=== PATIENT | female | born 1995 | race Caucasian/White ===

== ENCOUNTER 2021-04-29 23:41 | Inpatient (IN) | payer BC, SELFPAY ==
[2021-04-30] VITALS (68 sets, daily range): BP systolic 75–152; BP diastolic 46–127; PULSE 66–96; RESP 16–18; TEMP 36.7–37.1; O2SAT 98–100; BMI 38.1
--- NOTE | 2021-04-30 00:35 | LDADM ---
This patient, Noni Soto, was admitted to Labor/Delivery/Recovery 106 on 04/29/21 at 23:41. Plans for labor, pain management and were discussed with patient. Patient/family oriented to hospital policies and general routines including ID bracelet, bed and alarms, visiting hours, pain management, procedures, bathroom and other care routines, personal items, smoking policy, room service/diet and guest tray routines, infant security routines, and visiting hours. Patient/Family are encouraged to report perceived risks to care and to ask questions if they do not understand what they are told or what they should do. See OBIX for further documentation.
[2021-04-30 00:43] LABS: Basophils Percent Auto 0.2 % (0.2-1.2); Eosinophils Absolute Auto 0.1 K/mm3 (0-0.3); Eosinophils Percent Auto 0.6 % (0-4.4); Hematocrit 35.2 % (37.0-47.0); Hemoglobin 11.5 g/dL (12.0-15.0); Immature Granulocyte Absolute 0.03 K/mm3 (0.00-0.031); Immature Granulocyte Percent A 0.3 % (0-0.5); Lymphocytes Absolute Auto 2.27 K/mm3 (0.9-3.2); Lymphocytes Percent Auto 23.7 % (18.3-44.2); Mean Corpuscular HGB Conc 32.7 g/dl (32-36); Mean Corpuscular Hemoglobin 28.5 pg (26-34); Mean Corpuscular Volume 87.3 fl (80-100); Mean Platelet Volume 11.2 fl (7.4-10.4); Monocytes Absolute Auto 0.6 K/mm3 (0.1-0.6); Monocytes Percent Auto 5.8 % (2.6-8.5); Neutrophils Absolute Auto 6.6 K/mm3 (1.3-6.7); Neutrophils Percent Auto 69.4 % (45.5-73.1); Platelet Count Result 214 k/mm3 (150-375); Red Blood Count 4.03 M/mm3 (4.2-5.4); Red Cell Distribution Width 14.8 % (11.5-14.5); White Blood Count 9.6 K/mm3 (4.5-10.0)
[2021-04-30] MEDS: OXYTOCIN 30 UNITS/NS 500 ML 30 UNITS/500 ML BAG IV CONT (01:30)
[2021-04-30] MEDS: LACTATED RINGERS 1,000 ML 125 ML IV CONT (01:30)
[2021-04-30] MEDS: CALCIUM CARBONATE (TUMS) 500 MG (200 MG ELEMENTAL) 400 MG PO (02:24)
[2021-04-30] MEDS: fentaNYL CITRATE INJ (*CRX) 100 MCG/2 ML VIAL IV PUSH ×2 (03:42→04:49)
--- NOTE | 2021-04-30 05:40 | P.PNAN_ITS ---
Anes - Eval Pre Procedure Procedure: labor epidural Date/Time: 04/30/21 05:40 Surgeon: tanvi Preop Diagnosis: pain during labor Pre Op Diagnosis: Leaking Patient Data Age: 26 Gender: F Height: 1.6 m Weight: 97.6 kg Last Vital Signs Temp 36.9 C 04/30/21 03:31 Pulse 94 04/30/21 05:01 BP 137/76 04/30/21 05:01 Allergies Allergy/AdvReac Type Severity Reaction Status Date / Time No Known Allergies Allergy Verified 04/09/21 15:23 Home Medications Medication Instructions Recorded Confirmed Type No Home Medications 04/09/21 04/09/21 History Laboratory Tests 04/30/21 04/30/21 04/30/21 00:29 00:29 00:29 WBC 9.6 K/mm3 K/mm3 (4.5-10.0) RBC 4.03 M/mm3 L M/mm3 (4.2-5.4) Hgb 11.5 g/dL L g/dL (12.0-15.0) Hct 35.2 % L % (37.0-47.0) MCV 87.3 fl fl (80-100) MCH 28.5 pg pg (26-34) MCHC 32.7 g/dl g/dl (32-36) RDW 14.8 % H % (11.5-14.5) Plt Count 214 k/mm3 k/mm3 (150-375) MPV 11.2 fl H fl (7.4-10.4) Immature Gran % (Auto) 0.3 % % (0-0.5) Neut % (Auto) 69.4 % % (45.5-73.1) Lymph % (Auto) 23.7 % % (18.3-44.2) [place] % (Auto) 5.8 % % (2.6-8.5) Eos % (Auto) 0.6 % % (0-4.4) Baso % (Auto) 0.2 % % (0.2-1.2) Lymph # (Auto) 2.27 K/mm3 K/mm3 (0.9-3.2) [place] # (Auto) 0.6 K/mm3 K/mm3 (0.1-0.6) Eos # (Auto) 0.1 K/mm3 K/mm3 (0-0.3) Baso # (Auto) 0.0 K/mm3 K/mm3 (0.0-0.1) Abs Immat Gran (auto) 0.03 K/mm3 K/mm3 (0.00-0.031) Absolute Neuts (auto) 6.6 K/mm3 K/mm3 (1.3-6.7) Absolute Nucleated RBC 0.0 K/mm3 K/mm3 (0.0-0.012) Nucleated RBC % 0.0 % % (0.0-0.2) RPR Pending Blood Type O Positive Antibody Screen Negative Patient hx anesthesia problems: none Family hx anesthesia problems: none Results Review: All pre-operative results and documents have been reviewed as part of the pre-operative evaluation. [facility] Family History Family History (Updated 04/09/21 @ 15:24 by Eloy Martinez RN) Other Adopted Social History Social History Smoking status: Never smoker Second hand tobacco smoke exposure: No Substance use: never Spiritual care concerns: No Exam Day of Procedure 04/30/21 05:40
[2021-04-30 07:15] LABS: Rapid Plasma Reagin Non-Reactive (NonReactive)
[2021-04-30] MEDS: ONDANSETRON INJ 4 MG/2 ML VIAL IV PUSH (09:27)
--- NOTE | 2021-04-30 09:30 | PM.IMHP ---
H&P: HPI History of Present Illness Date/Time: 04/30/21 09:30 Chief Complaint: intrauterine at term spontaneous rupture of membranes Narrative: 26 yo at 39w5d who presents after SROM around midnight. She endorses good movement. She denies any vaginal bleeding. Her has been uncomplicated thus far. Review of Systems Cardiovascular: Cardiovascular: Denies chest pain, Denies leg edema, Denies palpitations, Denies dyspnea and Denies dyspnea on exertion Respiratory: Respiratory: Denies cough, Denies dyspnea and Denies dyspnea on exertion Gastrointestinal: Gastrointestinal: Denies abdominal pain, Denies constipation, Denies diarrhea, Denies nausea and Denies vomiting Genitourinary: Genitourinary: Denies hematuria, Denies urinary frequency, Denies dysuria, Denies pelvic pain, Denies urinary incontinence and Denies vaginal discharge Neurologic: Reports system reviewed and no additional complaints, except as documented Psychiatric: Psychiatric: Reports no additional psychiatric complaints Endocrine: Endocrine: Denies palpitations COUNT INCLUDES THE [facility] Family History Family History (Updated 04/09/21 @ 15:24 by Eloy Martinez RN) Other Adopted Social History Social History Smoking status: Never smoker Second hand tobacco smoke exposure: No Substance use: never Spiritual care concerns: No Meds Home Medications and Allergies Home Medications Medication Instructions Recorded Confirmed Type No Home Medications 04/09/21 04/09/21 History Allergies Allergy/AdvReac Type Severity Reaction Status Date / Time No Known Allergies Allergy Verified 04/09/21 15:23 Vital Signs Vital Signs - 24 hr 04/30/21 00:16 04/30/21 00:31 04/30/21 00:47 Temperature Pulse Rate 73 78 78 Blood Pressure 138/94 H 136/91 H 101/46 L Pulse Oximetry 04/30/21 01:31 04/30/21 01:34 04/30/21 02:24 Temperature 37.0 C Pulse Rate 81 73 Blood Pressure 75/56 L 140/87 Pulse Oximetry 04/30/21 02:31 04/30/21 03:01 04/30/21 03:31 Temperature 36.9 C Pulse Rate 71 68 72 Blood Pressure 143/85 H 150/127 H 141/89 H Pulse Oximetry 04/30/21 04:01 04/30/21 05:01 04/30/21 05:30 Temperature 37.1 C Pulse Rate 85 94 Blood Pressure 134/78 137/76 Pulse Oximetry 04/30/21 05:44 04/30/21 05:46 04/30/21 05:49 Temperature Pulse Rate 80 85 Blood Pressure 150/89 H 141/91 H Pulse Oximetry 100 100 04/30/21 05:51 04/30/21 05:52 04/30/21 05:53 Temperature Pulse Rate 90 77 Blood Pressure 137/81 152/83 H Pulse Oximetry 100 04/30/21 05:56 04/30/21 05:57 04/30/21 05:59 Temperature Pulse Rate 83 86 Blood Pressure 151/82 H 140/88 Pulse Oximetry 100 04/30/21 06:01 04/30/21 06:02 04/30/21 06:03 Temperature Pulse Rate 81 75 Blood Pressure 143/86 H 146/79 H Pulse Oximetry 100 04/30/21 06:06 04/30/21 06:07 04/30/21 06:09 Temperature Pulse Rate 73 75 Blood Pressure 140/77 130/98 H Pulse Oximetry 100 04/30/21 06:11 04/30/21 06:12 04/30/21 06:15 Temperature Pulse Rate 81 76 Blood Pressure 142/82 H 121/68 Pulse Oximetry 100 04/30/21 06:16 04/30/21 06:17 04/30/21 06:18 Temperature Pulse Rate 86 73 Blood Pressure 118/71 128/67 Pulse Oximetry 100 04/30/21 06:21 04/30/21 06:22 04/30/21 06:23 Temperature Pulse Rate 69 69 Blood Pressure 140/73 132/77 Pulse Oximetry 100 04/30/21 06:26 04/30/21 06:27 04/30/21 06:28 Temperature Pulse Rate 71 74 Blood Pressure 97/61 L 130/74 Pulse Oximetry 100 04/30/21 06:31 04/30/21 06:32 04/30/21 06:33 Temperature Pulse Rate 66 66 Blood Pressure 136/80 136/78 Pulse Oximetry 100 04/30/21 06:36 04/30/21 06:37 04/30/21 06:42 Temperature Pulse Rate 80 Blood Pressure 143/70 H Pulse Oximetry 100 100 04/30/21 06:47 04/30/21 07:01 04/30/21 07:07 Temperature 36.8 C Pulse Rate 77 Blood Pressure 117/71 Pulse Oximetry 100
--- NOTE | 2021-04-30 10:34 | PM.OBPRVD ---
OB - Delivery Note Procedure Procedure: Patient pushed for a spontaneous vaginal delivery. The fetus was delivered atraumatically and placed on the maternal abdomen. The cord was clamped and cut after 1 minute of life. The cord was double clamped and cut and a segment of cord was collected for cord gases. Cord blood was collected for blood type and Coomb's testing. The placenta delivered spontaneously and was noted to be intact. The perineum was inspected and there was a 2nd degree perineal and right labial laceration. The laceration was repaired with 3-0 vicryl in the usual fashion. The uterus was firm and good hemostasis was noted. The patient and fetus were stable in the delivery room. Induction method: None Delivery augmentation: Pitocin Delivery monitor: External FHT Route of delivery: Episiotomy description: None Laceration Description: Perineal - 2nd Degree and Labial (right) Delivery repair: vicryl Specimen: No Quantitative Blood Loss (ml): 150 Anesthesia type: Epidural Disposition: floor () Complications: No immediate complications [place] Baby Date of : 04/30/21 Time of : 10:18 Weeks of gestation at delivery: 39 gender: Female Weight (pounds): 6 Weight (ounces): 4 presentation: vertex position: Right Occiput Anterior Placenta delivery description: Spontaneous Cord Vessel Description: 3 Vessels and Nuchal Cord score one minute: 8 score five minutes: 9
[2021-04-30] MEDS: OXYTOCIN 30 UNITS/NS 500 ML 30 UNITS/500 ML BAG 125 UNITS IV CONT (10:51)
[2021-04-30] MEDS: WITCH HAZEL 40 PADS 1 PAD TOPICAL (12:54)
[2021-04-30] MEDS: BENZOCAINE 20% AER SPR (*SP) 56 GM CAN 1 SPRAY TOPICAL (12:54)
--- NOTE | 2021-04-30 13:10 | PC.NURSE ---
Patient transferred to post room #285 per wheelchair from labor and delivery. Support person present. Oriented to unit, room, information board, rooming in, admission packet and security measures. Patient verbalizes understanding.
--- NOTE | 2021-04-30 15:21 | PC.NURSE ---
1347 -Mother and father are sleeping. Introduction were made and mother agreed that is her desire. is in the bassinet with early feeding cues. RN unwrapped/undressed for skin to skin contact with mother. Mother makes a decision to attempt in the side-lying position. After a few minutes latched effectively to the left breast with good rocking motion and suck/swallow ratio appropriate. Mother denies discomfort and voices understanding to call for assistance when needed. Reported to primary RN.
[2021-05-01] MEDS: IBUPROFEN 600 MG TABLET PO ×2 (01:50→08:55)
[2021-05-01 04:25] VITALS: BP 117/75; PULSE 76; RESP 16; TEMP 36.8; O2SAT 99
[2021-05-01 04:58] LABS: Hematocrit 31.9 % (37.0-47.0); Hemoglobin 10.5 g/dL (12.0-15.0)
[2021-05-01 07:40] VITALS: BP 135/92; PULSE 63; RESP 16; TEMP 36.4; O2SAT 100
[2021-05-01] MEDS: MULTIVIT/MIN/PREN/FOL AC/IRON TABLET 1 TAB PO (07:53)
--- NOTE | 2021-05-01 08:31 | PM.OBPNVD ---
OB - PN: Subj Subjective Date/time seen: 05/01/21 08:31 Patient comments: no complaints, pain well controlled and tolerating diet [place] feeding status: exclusively breast feeding Narrative: patient doing well this AM. No complaints. Pain is well controlled. She reports minimal bleeding. She is ambulating and voiding without difficulty. She is tolerating PO. She denies N/V, fever, chills. OB - PN: Obj Data Labs CBC & Chem 7: 05/01/21 04:30 Labs: Laboratory Results - last 24 hr 05/01/21 04:30 Hgb 10.5 L Hct 31.9 L OB - PN A/P Plan day: 1 Plan: routine care Comments: patient doing well H/H stable continue routine care Time Spent With Patient Time: Total time spent is greater than 50% in coordination of care (as documented) at patient's floor/unit and/or counseling patient: Time with patient: less than 15 minutes Review of Systems Review of Systems: All systems reviewed & are unremarkable except as noted in HPI and below Exam Const: General: comfortable and no acute distress Resp: Effort & Inspection: normal respiratory effort Cardio: Rate: regular rate GI: GI Palp: Yes Soft to palpation and No Tenderness to palpation present (GI) Auscultation: normal bowel sounds Other: fundus firm and below umbilicus. Psych: Affect: normal affect
--- NOTE | 2021-05-01 08:32 | P.DS_ITS ---
DS: Admitting Diagnosis Discharge Date 05/01/21 Admitting Diagnosis intrauterine at term OB - DS: Summary OB Procedures : None OB Procedures Intrapartum: Spontaneous Vag Delivery OB Procedures: : None Status at Discharge Functional status at discharge: independent ambulation Overall status at discharge: patient is back to baseline Time Spent with Patient Time attestation: Total time spent providing and/or coordinating discharge services: Time spent: Less than 30 minutes Exam Const: General: comfortable and no acute distress Resp: Effort & Inspection: normal respiratory effort Auscultation: clear to auscultation bilaterally Cardio: Rate: regular rate GI: GI Palp: Yes Soft to palpation Auscultation: normal bowel sounds Other: Fundus firm below umbilicus Psych: Appearance: grossly normal Mental Status: mental status grossly normal Affect: normal affect DS: Data Data Completed and Pending Pending studies at discharge: Pending at discharge 04/30/21 10:22 Surgical [PTH] Routine Labs on day of discharge: Labs from last 24 hours 05/01/21 04:30 Hgb 10.5 L Hct 31.9 L Discharge Plan Discharge Discharging Clinician: Mitchell Boateng Patient Disposition: Home, Self-Care Activity: as tolerated and pelvic rest Diet: regular Patient Instructions: Antibiotic Form, Vaginal Delivery (DC) Stand Alone Forms: General Discharge Information Follow-up/Referrals: Emmanuel Myles MD [Physician] - Discharge Medications: New ibuprofen 600 mg Tablet 600 mg PO Q6H PRN (Reason: Cramping) Qty: 30 RF: 0 acetaminophen [Mapap (acetaminophen)] 325 mg Tablet 650 mg PO Q6H PRN (Reason: Mild Pain (1-3) Or Headache) Qty: 30 RF: 0 No Action No Home Medications RF: 0 Date of admission: 04/29/21 23:41 Primary Care Provider: PHYSICIAN,[employer] Admitting Provider: Emmanuel Myles Attending physician on admission: Emmanuel Myles Condition: Stable
--- NOTE | 2021-05-01 09:02 | PC.NURSE ---
7918 - Consulted with patient on how has gone so far. Mother has infant latched effectively to the left breast in cross cradle position without and discomfort. Mother voiced understanding to call out for RN assistance if she is unable to latch for feeding, has discomfort with nursing and to respond to feeding cues for feeding to aim for 8-12 times in 24 hours. are noted before. Reported to primary RN.
--- NOTE | 2021-05-01 09:15 | P.PNAN_ITS ---
Anes-Prog Note L&D Date/Time: 05/01/21 09:15 Comfortable throughout: labor Neuraxial method: epidural Epidural/Spinal procedure site: tender Neuro status: Neuro function grossly intact. Cardiovascular status: normal Respiratory status: normal Airway patency: baseline Mental status: baseline Post-Op hydration status: normal Vital Signs: Last Vital Signs Temp 97.6 F 05/01/21 07:40 Pulse 63 05/01/21 07:40 Resp 16 05/01/21 07:40 BP 135/92 H 05/01/21 07:40 Pulse Ox 100 05/01/21 07:40 Pain score (VAS): 0 Post-procedural complaints: none Patient feedback: Patient satisfied with anesthetic care. Pt verbalized good coverage with labor epidural however, states had a lot of pain with deli very.spoke with delivery nurse Caitlin. RN states boluses were given via the pump but she did not notify anesthesiology d/t pt making quick change.
--- NOTE | 2021-05-01 16:00 | PC.NURSE ---
Patient instructed to view the discharge video Mother & Baby Care, The First Two Weeks . Patient was given the opportunity and encouraged to ask questions. Patient verbalized understanding of information shared and has been given the mother/baby guide for home reference.
[2021-05-02 11:37] VITALS: BP 129/70; PULSE 78; RESP 20; TEMP 37.1; O2SAT 100
== END 2021-05-01 17:17 | disposition home or self-care (01) | DRG 807 ==
LOC: ANHOB2 05-01 14:45 → ANHLDR 05-02 08:13 → ANHOB2 05-02 08:13
PROVIDERS: Admitting Provider Obstetrics & Gynecology; Visit Provider Student in an Organized Health Care Education/Training Program
DX: O77.0 Labor and delivery complicated by meconium in amniotic fluid (principal); Z37.0 Single live birth; Z3A.39 39 weeks gestation of pregnancy; O69.81X0 Labor and delivery complicated by cord around neck, without compression, not applicable or unspecified; O36.8330 Maternal care for abnormalities of the fetal heart rate or rhythm, third trimester, not applicable or unspecified; O70.1 Second degree perineal laceration during delivery
CPT/HCPCS: 36415; 84112; 85014; 85018; 85025; 86592; 86850; 86900; 86901; 88307; A9270; J2405; J2590; J2795; J3010; J7120

== ENCOUNTER 2022-10-30 23:29 | Inpatient (IN) | payer OTHER, SELFPAY ==
[2022-10-31] VITALS (154 sets, daily range): BP systolic 89–146; BP diastolic 37–91; PULSE 52–163; RESP 18; TEMP 35.8–37.1; O2SAT 85–100; BMI 37.9
[2022-10-31 03:47] LABS: Basophils Percent Auto 0.2 % (0.2-1.2); Eosinophils Absolute Auto 0.1 K/mm3 (0-0.3); Eosinophils Percent Auto 0.9 % (0-4.4); Hematocrit 37.7 % (37.0-47.0); Hemoglobin 12.3 g/dL (12.0-15.0); Immature Granulocyte Absolute 0.06 K/mm3 (0.00-0.031); Immature Granulocyte Percent A 0.6 % (0-0.5); Lymphocytes Absolute Auto 2.31 K/mm3 (0.9-3.2); Lymphocytes Percent Auto 22.8 % (18.3-44.2); Mean Corpuscular HGB Conc 32.6 g/dl (32-36); Mean Corpuscular Hemoglobin 29.2 pg (26-34); Mean Corpuscular Volume 89.5 fl (80-100); Mean Platelet Volume 10.7 fl (7.4-10.4); Monocytes Absolute Auto 0.6 K/mm3 (0.1-0.6); Monocytes Percent Auto 5.9 % (2.6-8.5); Neutrophils Absolute Auto 7.1 K/mm3 (1.3-6.7); Neutrophils Percent Auto 69.6 % (45.5-73.1); Platelet Count Result 219 k/mm3 (150-375); Red Blood Count 4.21 M/mm3 (4.2-5.4); Red Cell Distribution Width 14.3 % (11.5-14.5); White Blood Count 10.2 K/mm3 (4.5-10.0)
[2022-10-31] MEDS: LACTATED RINGERS 1,000 ML 125 ML IV CONT ×3 (03:53→12:58)
[2022-10-31] MEDS: OXYTOCIN 30 UNITS/NS 500 ML 30 UNITS/500 ML BAG IV CONT (03:57)
[2022-10-31] MEDS: ONDANSETRON INJ 4 MG/2 ML VIAL IV PUSH ×2 (06:18→16:04)
--- NOTE | 2022-10-31 08:38 | WPDOBADMIT ---
Obstetrics - Admit Note Admission Note: record reviewed. Additions to the history and/or subsequent changes in the physical findings follow. 27 y/o at 40 1/7 weeks here with leakage of fluid. RomPlus was negative, but some FHR abnormalities prompted admission for labor induction. GBS neg. AVSS NST reactive TOCO: irregular contractions ABD soft, nontender, gravid, vertex EXT nontender Cervix 2-3/50/-2. AROM with thin meconium. IUPC placed. Vertex. A: IUP at term. P: Offered labor induction, as above. Thin mec. Oxytocin. Anticipate .
[2022-10-31] MEDS: fentaNYL CITRATE INJ (*CRX) 100 MCG/2 ML VIAL 50 MCG IV PUSH (09:00)
[2022-10-31 09:02] LABS: Rapid Plasma Reagin Non-Reactive (NonReactive)
[2022-10-31] MEDS: SODIUM CHLORIDE 0.9% IV 300 ML 600 ML I-UTERINE (11:15)
--- NOTE | 2022-10-31 11:28 | WPDANESEPPF ---
Anes - Initial Pre Proc Eval Date/Time: 10/31/22 11:28 Surgeon: Emmanuel Myles MD Pre Op Diagnosis: Leaking Fluid Patient Data Age: 27 Gender: F Height: 1.6 m Weight: 97.1 kg Last Vital Signs Temp 35.8 C L 10/31/22 11:26 Pulse 62 10/31/22 11:01 BP 96/54 L 10/31/22 11:01 Pulse Ox 100 10/31/22 11:27 O2 Del Method Room Air 10/31/22 01:00 Allergies Allergy/AdvReac Type Severity Reaction Status Date / Time No Known Allergies Allergy Verified 10/31/22 05:09 Laboratory Tests 10/31/22 03:26 WBC 10.2 H K/mm3 (4.5-10.0) RBC 4.21 M/mm3 (4.2-5.4) Hgb 12.3 g/dL (12.0-15.0) Hct 37.7 % (37.0-47.0) MCV 89.5 fl (80-100) MCH 29.2 pg (26-34) MCHC 32.6 g/dl (32-36) RDW 14.3 % (11.5-14.5) Plt Count 219 k/mm3 (150-375) MPV 10.7 H fl (7.4-10.4) Immature Gran % (Auto) 0.6 H % (0-0.5) Neut % (Auto) 69.6 % (45.5-73.1) Lymph % (Auto) 22.8 % (18.3-44.2) [place] % (Auto) 5.9 % (2.6-8.5) Eos % (Auto) 0.9 % (0-4.4) Baso % (Auto) 0.2 % (0.2-1.2) Lymph # (Auto) 2.31 K/mm3 (0.9-3.2) [place] # (Auto) 0.6 K/mm3 (0.1-0.6) Eos # (Auto) 0.1 K/mm3 (0-0.3) Baso # (Auto) 0.0 K/mm3 (0.0-0.1) Abs Immat Gran (auto) 0.06 H K/mm3 (0.00-0.031) Absolute Neuts (auto) 7.1 H K/mm3 (1.3-6.7) Absolute Nucleated RBC 0.0 K/mm3 (0.0-0.012) Nucleated RBC % 0.0 % (0.0-0.2) RPR Non-reactive (NonReactive) Blood Type O Positive Antibody Screen Negative Patient hx anesthesia problems: none Family hx anesthesia problems: none Results Review: All pre-operative results and documents have been reviewed as part of the pre-operative evaluation. [facility] Family History Family History Other Adopted Social History Social History Smoking status: Never smoker Second hand tobacco smoke exposure: No Substance use: never Lack of Transportation: No Lack of Food: Never True Current Housing: I Have Housing Concerned About Future Housing: No Difficulty Paying Gas/Electric Bills: No Difficulty Paying for Meds: No Currently Unemployed: No Education: Decline to Answer Difficulty w/ Childcare or Family Care: No Spiritual care concerns: No Anes - Eval Final PreProcedure Day of Procedure 10/31/22 11:28 Patient weight: obese Heart: regular rate and rhythm Lungs: clear to auscultation Neurological: alert and oriented Last oral intake: >/= 8 hours ASA classification: II Emergent: no Anesthetic plan: proceed Anesthesia type and monitoring: regional epidural and standard monitoring Results Review: All pre-operative results and documents have been reviewed as part of the pre-operative evaluation. Informed Consent: The patient's anesthetic plan and its attendant risks and benefits were discussed with the patient/family/POA. Questions were solicited and answers provided to the satisfaction of the patient/family/POA.
--- NOTE | 2022-10-31 17:28 | P.PCNOB_ITS ---
OB - Delivery Note Procedure Delivery date: 10/31/22 Procedure: Induction of labor with Induction method: Per Pitocin Protocol Delivery augmentation: Rupture of Membranes Delivery monitor: External FHT, External Uterine and Internal Uterine Route of delivery: Laceration Description: None Specimen: Yes (cord blood, placenta) Quantitative Blood Loss (ml): 180 Anesthesia type: Epidural Disposition: PACU Complications: None Narrative: 27 y/o at 40 1/7 weeks gestation who presented to the hospital with leakage of fluid. SROM was ruled out, but abnormal FHR prompted us to offer induction of labor. Oxytocin was administered intravenously. Amniotomy was performed with return of meconium-stained fluid. She received an epidural for pain control. Her labor progressed and her cervix dilated completely. She pushed with good effort and delivered the 's head to the perineum, followed by the body. The cord was clamped and cut, and the baby was passed off to the waiting auto salvage worker. Cord blood was collected. The placenta delivered spontaneously and was grossly normal in appearance. The usual 3 vessel cord was noted. There were no lacerations. Needle and instrument counts were correct. The patient was taken to recovery room in stable condition. The went to the nursery in stable condition. I was present and scrubbed for the entire delivery. [place] Baby Date of : 10/31/22 Time of : 17:13 Weeks of gestation at delivery: 40 gender: Male Weight (pounds): 7 Weight (ounces): 2 presentation: vertex position: Left Occiput Anterior Placenta delivery description: Spontaneous and Normal Configuration Cord Vessel Description: 3 Vessels and Clamped/Cut score one minute: 7 score five minutes: 9
--- NOTE | 2022-10-31 17:32 | PM.OBDSVD ---
DS: Admitting Diagnosis Discharge Date 11/02/22 Admitting Diagnosis IUP at 40 1/7 weeks DS: Discharge Diagnosis Discharge Diagnosis (1) (normal spontaneous vaginal delivery): Code(s): O80 - Encounter for full-term uncomplicated delivery Status: Acute OB - DS: Summary OB Procedures : None OB Procedures Intrapartum: Spontaneous Vag Delivery OB Procedures: : None Time Spent with Patient Time attestation: Total time spent providing and/or coordinating discharge services: DS: Data Data Completed and Pending Labs on day of discharge: Labs from last 24 hours 10/31/22 03:26 WBC 10.2 H RBC 4.21 Hgb 12.3 Hct 37.7 MCV 89.5 MCH 29.2 MCHC 32.6 RDW 14.3 Plt Count 219 MPV 10.7 H Immature Gran % (Auto) 0.6 H Neut % (Auto) 69.6 Lymph % (Auto) 22.8 [place] % (Auto) 5.9 Eos % (Auto) 0.9 Baso % (Auto) 0.2 Lymph # (Auto) 2.31 [place] # (Auto) 0.6 Eos # (Auto) 0.1 Baso # (Auto) 0.0 Abs Immat Gran (auto) 0.06 H Absolute Neuts (auto) 7.1 H Absolute Nucleated RBC 0.0 Nucleated RBC % 0.0 RPR Non-reactive Blood Type O Positive Antibody Screen Negative Discharge Plan Discharge Attending physician on discharge: Emmanuel Myles Consulting providers: Avila Van; Krystal Alonzo Discharging Clinician: Emmanuel Myles Patient Disposition: Home, Self-Care Activity: pelvic rest Diet: regular Discharge Instructions: Education: Mom and Baby Guide Given to: Mother Follow-Up: Call your delivering provider's office for an appointment to be seen in: 6 Weeks Mom and baby should come to the [facility] for the follow-up appointment. Appointment Date/Time: Friday, November 04, 2022 at 10:00 am What to expect at your follow-up visit: Physical Assessment Call [phone] if you are unable to keep your appointment time. BREAST CARE: * Wear a snug supportive bra. * For engorgement discomfort: Breast Feeding: * Apply warm moist washcloths * Express milk as needed to relieve engorgement * Wear loose clothing Bottle Feeding: * May apply ice packs * For sore nipples: * Identify correct latch-on * Apply warm moist washcloths before and after nursing * Air dry nipples after nursing * May apply Lansinoh cream to nipples PERINEAL CARE: * Until bleeding stops, use your carlos bottle after urinating * Change your pad frequently throughout the day * You may take sitz baths several times a day (fill your bathtub with warm water and soak for 20 minutes.) Do NOT bathe in the water * No tub baths until seen by your physician - You may shower ACTIVITY: * Rest as much as possible. * Do not exercise or lift anything heavier than your baby (such as laundry or other children.) * Avoid stairs or driving as much as possible. * Do not put anything into the vagina. No douching, tampons, or sexual activity until seen by physician. NOTIFY PHYSICIAN IF YOU HAVE ANY QUESTIONS OR IF ANY OF THE FOLLOWING SYMPTOMS OCCUR: * If your episiotomy or incision becomes red, swollen, or more painful than what you have experienced in the hospital. * If your vaginal bleeding becomes foul smelling. * If your vaginal bleeding becomes more heavy than a period or if your bleeding changes from pink to bright red. However, you may pass an occasional walnut-sized clot once or twice for the first week . * If you experience a sharp, shooting pain in you calves. * If you discover a hard, reddened area on your breast or if you experience flu-like symptoms. DIET: * Eat regular, well-balanced meals. * Drink plenty of fluids daily. If , drink to thirst. PER Dr.Dalla Will, Call or return if temperature above 100.4? F, increased abdominal pain, increased vaginal bleeding or any new problems. Follow-up/Referrals: Emmanuel Myles MD [
[2022-10-31] MEDS: OXYTOCIN 30 UNITS/NS 500 ML 30 UNITS/500 ML BAG 125 UNITS IV CONT (17:45)
[2022-10-31] MEDS: BENZOCAINE 20% AER SPR (*SP) 56 GM CAN 1 SPRAY TOPICAL (19:36)
[2022-10-31] MEDS: WITCH HAZEL 40 PADS 1 PAD TOPICAL (19:36)
--- NOTE | 2022-10-31 19:52 | OBPPTRN ---
Patient transferred to post room #281 via ( wheelchair ). Support person present. Oriented to unit, room, information board, rooming in, admission packet and security measures. Patient verbalizes understanding.
[2022-10-31] MEDS: IBUPROFEN 600 MG TABLET PO (21:09)
[2022-11-01] VITALS: BP 115/67; PULSE 83; RESP 18; TEMP 37.2; O2SAT 100
[2022-11-01] MEDS: IBUPROFEN 600 MG TABLET PO ×2 (03:53→09:09)
[2022-11-01 04:00] VITALS: BP 118/75; PULSE 65; RESP 18; TEMP 36.9; O2SAT 100
[2022-11-01 05:01] LABS: Hematocrit 37.5 % (37.0-47.0); Hemoglobin 11.9 g/dL (12.0-15.0)
--- NOTE | 2022-11-01 06:52 | PM.OBPNVD ---
OB - PN: Subj Subjective Date/time seen: 11/01/22 06:52 Patient comments: no complaints and pain well controlled baby status: doing well OB - PN: Obj Data Labs 11/01/22 04:54 Labs: Laboratory Results - last 24 hr 10/31/22 11/01/22 03:26 04:54 Hgb 11.9 L Hct 37.5 RPR Non-reactive OB - PN A/P Plan day: 1 Plan: routine care Time Spent With Patient Time: Total time spent is greater than 50% in coordination of care (as documented) at patient's floor/unit and/or counseling patient: Time with patient: less than 15 minutes Exam Const: General: cooperative, healthy appearing and comfortable Nutritional Appearance: average body habitus Orientation/consciousness: oriented to person, oriented to place and oriented to time HENMT: Head: normal to inspection Resp: Effort & Inspection: normal respiratory effort Cardio: Rate: regular rate Rhythm: regular rhythm Heart sounds: S1 normal heart sound present and S2 normal heart sound present GI: Inspection: normal to inspection
[2022-11-01 08:05] VITALS: BP 126/75; PULSE 83; RESP 18; TEMP 36.7; O2SAT 99
[2022-11-01] MEDS: DOCUSATE SODIUM 100 MG CAPSULE PO (09:08)
[2022-11-01] MEDS: MULTIVIT/MIN/PREN/FOL AC/IRON TABLET 1 TAB PO (09:08)
--- NOTE | 2022-11-01 11:07 | PC.NURSE ---
0813 Introductions were made, then consulted with patient to assess needs related to . Mother led the conversation with her?plans to feed?her and the?experience so far. Per mother she does plan on , she hand expressed 1x last night and baby was fed once during the night via syringe. Mother requested assistance waking baby, he was recently circumcised. Mother held baby upright while skin to skin and rubbed his back, RN assisted mother with burping, baby still sleepy, mother to keep skin to skin. RN will return. Resources provided for inpatient and outpatient services with the feeding sheet, mom/baby guide and name written on the white board. Mother voiced understanding of information and will call if there is a request for assistance. Reported to the primary RN. 0910 Dad holding baby while mother is having assessment done by primary RN. RN to return. 0920 Baby is starting to wake up but is reluctant to latch, mother able to hand express many drops into baby's mouth. Mother would like to now hand express and feed via syringe. 1000 RN returned to room, mother able to hand express 3 mls of colostrum and baby was fed via syringe. RN reported feedings to primary RN.
[2022-11-01 11:45] VITALS: BP 109/67; PULSE 72; RESP 16; TEMP 36.9; O2SAT 100
--- NOTE | 2022-11-01 14:48 | WPDANLDPN2 ---
Anes-Prog Note L&D Date/Time: 11/01/22 14:48 Comfortable throughout: labor Neuraxial method: epidural Epidural/Spinal procedure site: clean & non-tender Neuro status: Neuro function grossly intact. Cardiovascular status: normal Respiratory status: normal Airway patency: baseline Mental status: baseline Post-Op hydration status: normal Vital Signs: Last Vital Signs Temp 36.9 C 11/01/22 11:45 Pulse 72 11/01/22 11:45 Resp 16 11/01/22 11:45 BP 109/67 11/01/22 11:45 Pulse Ox 100 11/01/22 11:45 O2 Del Method Room Air 10/31/22 01:00 Pain score (VAS): 10 I/O: Intake & Output 10/31/22 11/01/22 11/01/22 23:59 07:59 15:59 Intake Total 1000 Output Total 225 Balance 775 Post-procedural complaints: none Patient feedback: Patient satisfied with anesthetic care.
[2022-11-01 20:00] VITALS: BP 113/72; PULSE 94; RESP 18; TEMP 37.2; O2SAT 100
[2022-11-02] MEDS: IBUPROFEN 600 MG TABLET PO ×2 (01:20→11:00)
--- NOTE | 2022-11-02 07:33 | PM.OBPNVD ---
OB - PN: Subj Subjective Date/time seen: 11/02/22 07:33 Patient comments: no complaints and pain well controlled baby status: doing well and nursing well OB - PN: Obj Data Labs 11/01/22 04:54 OB - PN A/P Plan day: 2 Plan: routine care, discharge home and follow up 6 weeks Time Spent With Patient Time: Total time spent is greater than 50% in coordination of care (as documented) at patient's floor/unit and/or counseling patient: Time with patient: less than 15 minutes Exam Const: General: cooperative, healthy appearing and comfortable Nutritional Appearance: average body habitus Orientation/consciousness: oriented to person, oriented to place and oriented to time HENMT: Head: normal to inspection Resp: Effort & Inspection: normal respiratory effort Cardio: Rate: regular rate Rhythm: regular rhythm Heart sounds: S1 normal heart sound present and S2 normal heart sound present GI: Inspection: normal to inspection
[2022-11-02 10:59] VITALS: BP 114/65; PULSE 64; RESP 18; TEMP 36.4; O2SAT 100
[2022-11-02] MEDS: DOCUSATE SODIUM 100 MG CAPSULE PO (10:59)
[2022-11-02] MEDS: MULTIVIT/MIN/PREN/FOL AC/IRON TABLET 1 TAB PO (10:59)
[2022-11-04 10:30] VITALS: BP 123/78; PULSE 82; RESP 18; TEMP 36.4; O2SAT 100
== END 2022-11-02 12:57 | disposition home or self-care (01) | DRG 560 ==
LOC: ANHLDR 10-31 17:34 → ANHOB2 11-02 11:19 → ANHLDR 11-05 09:37 → ANHOB2 11-05 09:37
PROVIDERS: Admitting Provider Obstetrics & Gynecology; Visit Provider Obstetrics & Gynecology
DX: O80 Encounter for full-term uncomplicated delivery (principal); Z37.0 Single live birth; Z3A.40 40 weeks gestation of pregnancy
CPT/HCPCS: 36415; 85014; 85018; 85025; 86592; 86850; 86900; 86901; 88307; A9270; J2405; J2590; J2795; J3010; J7030; J7120

== ENCOUNTER 2023-11-24 23:31 | Emergency (ER) | payer OTHER, SELFPAY ==
[2023-11-24 23:35] VITALS: BP 132/61; PULSE 102; RESP 18; TEMP 36.2; O2SAT 100
== END 2023-11-24 23:40 | disposition left against medical advice (07) ==
LOC: ANHED 11-25 00:30
DX: M25.561 Pain in right knee (principal)
CPT/HCPCS: 99199

== ENCOUNTER 2024-05-30 08:39 | Outpatient (CLI) | payer OTHER, SELFPAY ==
--- NOTE | ~2024-05-30 | US_ITS ---
EXAMINATION: US OB limited w BPP DATE: 05/30/2024 10:43 CDT INDICATION: Biophysical profile TECHNIQUE: Real-time transabdominal Limited obstetric ultrasound. FINDINGS: 3 para 2. Current clinical estimated date of delivery as per patient is a 06/01/2024 There is a single intrauterine gestation in vertex presentation. The placenta is anterior/fundal without placenta previa. No images of the cervix are present on the submitted images. cardiac activity and movement is noted with a heart rate of 161 beats per minute. Biophysical profile: breathin of 2 movement: 2 of 2 tone: 2 of 2 Amniotic fluid pocket: 2 of 2 Total score: 8 of 8 Deepest vertical pocket measures 3.7 cm Amniotic fluid index measures 7.4 cm IMPRESSION: 1. Single intrauterine gestation in vertex presentation. 2: Total biophysical profile score of 8 out of 8. Reviewed, dictated and finalized at location A.
[2024-05-30 09:45] VITALS: BP 126/69; PULSE 65
--- OUTSIDE RECORDS SUMMARY | 2024-05-30 09:45 | XMS_ITS | Referral Summary ---
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 Denies 11/25/2023 Estimated Date of Delivery Comme nts Yes 06/01/2024 Sex and Gender Information Value Date Recorded Sex Assigned at Not on file Legal Sex Female 12:22 AM CDT Gender Identity Not on file Sexual Orientation Not on file Last Filed Vital Signs Vital Sign Reading Time Taken Comments Blood Pressure 122/79 11/25/2023 12:26 AM CDT Pulse 92 11/25/2023 12:26 AM CDT Temperature 36.6 C (97.9 F) 11/25/2023 12:26 AM CDT Respiratory Rate 18 11/25/2023 12:26 AM CDT Oxygen Saturation 100% 11/25/2023 12:26 AM CDT Inhaled Oxygen Concentration - - Weight 86.2 kg (190 lb) 11/27/2023 12:01 PM CDT Height 165.1 cm (5' 5 ) 11/27/2023 12:01 PM CDT Body Mass Index 31.62 11/27/2023 12:01 PM CDT Plan of Treatment Not on file Insurance [facility] Care Teams Equipment Mechanic Relationship Specialty Start Date End Date No, Physician PCP - General 11/25/23
--- OUTSIDE RECORDS SUMMARY | 2024-05-30 09:45 | XMS_ITS | Clinical Summary ---
Author Organization [facility] Address [address] [place] [address] Care Team Providers Care Molten Iron Pourer Name Role Phone No, Physician Primary Care Provider [phone] Allergies Active Allergy Reactions Criticality Noted Date [...] on file Sexual Orientation Not on file Obstetrics History Para Term AB IAB SAB Ectopic Multiple Livin g Live Births 1 Date Outcome GA Total Labor Labor/2nd/3rd Weight Sex Type Anes PTL Melinda A1 A5 Name Clin Current Last Filed Vital Signs Vital Sign Reading [...] 11/27/2023 12:01 PM CDT Plan of Treatment Health Maintenance Due Date Last Done Comments Cervical Cancer Screening 1996 Depression Screening 1996 Hepatitis C Screening 1996 Varicella Vaccines (1 of 2 - 13+ 2-dose series) 2009 Hepatitis B Screening 2014 Regular Well Visit/Exam 18-64 2014 Influenza Vaccine (#1) 2023 2, 03/11/2019 DTaP/Tdap/Td Vaccine (2 - Td or Tdap) 04/09/2031 04/09/2021 HPV Vaccines Aged Out No longer eligi ble based on patient's age to complete this topic Pneumococcal vaccine <65 Aged Out No longer eligible based on patient's age to complete this topic Insurance [facility] Care Teams Molten Iron Pourer Relationship Specialty Start Date End Date No, Physician PCP - General 11/25/23
[2024-05-30 10:27] LABS: OBXCEM ROM Plus Negative (Negative)
[2024-05-30 10:44] VITALS: BP 126/69; PULSE 70
== END 2024-05-30 10:44 | disposition home or self-care (01) ==
LOC: ANHOBOP 09:43 → ANHLDR 09:44
PROVIDERS: Obstetrics & Gynecology; Visit Provider Obstetrics & Gynecology
DX: O41.8X90 Other specified disorders of amniotic fluid and membranes, unspecified trimester, not applicable or unspecified (principal)
CPT/HCPCS: 59025; 76815; 76819; 84112

== ENCOUNTER 2024-06-02 06:43 | Inpatient (IN) | payer OTHER, SELFPAY ==
[2024-06-02] VITALS (119 sets, daily range): BP systolic 105–176; BP diastolic 59–103; PULSE 50–148; RESP 16–18; TEMP 36.4–37.1; O2SAT 92–100; BMI 36.3
--- NOTE | 2024-06-02 06:43 | LDADM ---
This patient, Noni Soto, was admitted to Labor/Delivery/Recovery 104 on 06/02/24 at 06:43. Plans for labor, pain management and were discussed with patient. Patient/family oriented to hospital policies and general routines including ID bracelet, bed and alarms, visiting hours, pain management, procedures, bathroom and other care routines, personal items, smoking policy, room service/diet and guest tray routines, infant security routines, and visiting hours. Patient/Family are encouraged to report perceived risks to care and to ask questions if they do not understand what they are told or what they should do. See OBIX for further documentation.
--- OUTSIDE RECORDS SUMMARY | 2024-06-02 06:47 | XMS_ITS | Referral Summary ---
Author Organization [facility] Address [address] [place] [address] Care Team Providers Care Lead Business Systems Analyst Name Role Phone No, Physician Primary Care Provider [phone] Allergies Active Allergy Reactions Criticality Noted Date [...] Plan of Treatment Not on file Insurance [facility] Care Teams Lead Business Systems Analyst Relationship Specialty Start Date End Date No, Physician PCP - General 11/25/23
--- OUTSIDE RECORDS SUMMARY | 2024-06-02 06:47 | XMS_ITS | Clinical Summary ---
Author Organization [facility] Address [address] [place] [address] Care Team Providers Care Machine Sneller Name Role Phone No, Physician Primary Care Provider [phone] Allergies Active Allergy Reactions Criticality Noted Date [...] patient's age to complete this topic Insurance [facility] Care Teams Machine Sneller Relationship Specialty Start Date End Date No, Physician PCP - General 11/25/23
[2024-06-02 07:34] LABS: Basophils Percent Auto 0.3 % (0.2-1.2); Eosinophils Absolute Auto 0.1 K/mm3 (0-0.3); Eosinophils Percent Auto 0.9 % (0-4.4); Hematocrit 37.8 % (37.0-47.0); Hemoglobin 12.6 g/dL (12.0-15.0); Immature Granulocyte Absolute 0.03 K/mm3 (0.00-0.031); Immature Granulocyte Percent A 0.4 % (0-0.5); Lymphocytes Absolute Auto 2.18 K/mm3 (0.9-3.2); Lymphocytes Percent Auto 27.7 % (18.3-44.2); Mean Corpuscular HGB Conc 33.3 g/dl (32-36); Mean Corpuscular Hemoglobin 29.7 pg (26-34); Mean Corpuscular Volume 89.2 fl (80-100); Mean Platelet Volume 10.9 fl (7.4-10.4); Monocytes Absolute Auto 0.3 K/mm3 (0.1-0.6); Monocytes Percent Auto 4.2 % (2.6-8.5); Neutrophils Absolute Auto 5.2 K/mm3 (1.3-6.7); Neutrophils Percent Auto 66.5 % (45.5-73.1); Platelet Count Result 207 k/mm3 (150-375); Red Blood Count 4.24 M/mm3 (4.2-5.4); Red Cell Distribution Width 13.6 % (11.5-14.5); White Blood Count 7.9 K/mm3 (4.5-10.0)
[2024-06-02] MEDS: LACTATED RINGERS 1,000 ML 125 ML IV CONT (07:39)
[2024-06-02] MEDS: OXYTOCIN 30 UNITS/NS 500 ML 30 UNITS/500 ML BAG IV CONT (07:39)
[2024-06-02 08:26] LABS: HIV 1/2 Ab P24 Ag Result Negative (Negative)
[2024-06-02 08:45] LABS: Syphilis IgG/IgM Antibody Negative (Negative)
--- NOTE | 2024-06-02 08:58 | WPDOBADMIT ---
Obstetrics - Admit Note Admission Note: record reviewed. Additions to the history and/or subsequent changes in the physical findings follow. 29 y/o at 40 1/7 weeks here for induction of labor. GBS neg. AVSS NST reactive TOCO: contractions rarely ABD soft, nontender, gravid, vertex EXT nontender Cervix 2-3/50/-3. AROM with return of scant, clear fluid. IUPC placed A: IUP at term with favorable cervix. P: Oxytocin. Anticipate .
--- NOTE | 2024-06-02 10:39 | P.PNAN_ITS ---
Anes - Eval Pre Procedure Procedure: Labor epidural Date/Time: 06/02/24 10:39 Surgeon: Shameka Preop Diagnosis: Pain during labor Pre Op Diagnosis: IOL Patient Data Age: 29 Gender: F Height: 1.65 m Weight: 99 kg Last Vital Signs Temp 36.4 C 06/02/24 07:30 Pulse 68 06/02/24 10:31 BP 148/100 H 06/02/24 10:31 Pulse Ox 92 06/02/24 10:38 O2 Del Method Room Air 06/02/24 07:45 Allergies Allergy/AdvReac Type Severity Reaction Status Date / Time Sulfa (Sulfonamide Allergy Severe Swelling Verified 05/30/24 11:04 Antibiotics) of Lip/Tongue/Throat Home Medications ?Medication ?Instructions ?Recorded ?Confirmed ?Type No Home Medications 05/05/24 05/30/24 History Laboratory Tests 06/02/24 06:52 WBC 7.9 K/mm3 (4.5-10.0) RBC 4.24 M/mm3 (4.2-5.4) Hgb 12.6 g/dL (12.0-15.0) Hct 37.8 % (37.0-47.0) MCV 89.2 fl (80-100) MCH 29.7 pg (26-34) MCHC 33.3 g/dl (32-36) RDW 13.6 % (11.5-14.5) Plt Count 207 k/mm3 (150-375) MPV 10.9 H fl (7.4-10.4) Immature Gran % (Auto) 0.4 % (0-0.5) Neut % (Auto) 66.5 % (45.5-73.1) Lymph % (Auto) 27.7 % (18.3-44.2) [place] % (Auto) 4.2 % (2.6-8.5) Eos % (Auto) 0.9 % (0-4.4) Baso % (Auto) 0.3 % (0.2-1.2) Lymph # (Auto) 2.18 K/mm3 (0.9-3.2) [place] # (Auto) 0.3 K/mm3 (0.1-0.6) Eos # (Auto) 0.1 K/mm3 (0-0.3) Baso # (Auto) 0.0 K/mm3 (0.0-0.1) Abs Immat Gran (auto) 0.03 K/mm3 (0.00-0.031) Absolute Neuts (auto) 5.2 K/mm3 (1.3-6.7) Absolute Nucleated RBC 0.000 K/mm3 (0.0-0.012) Nucleated RBC % 0.0 % (0.0-0.2) Syphilis IgG/IgM Ab Negative (Negative) HIV 1&2 Ab/P24 Ag 4thGn Negative (Negative) Blood Type O Positive Antibody Screen Negative Patient hx anesthesia problems: none Family hx anesthesia problems: none Results Review: All pre-operative results and documents have been reviewed as part of the pre- operative evaluation. [facility] Family History Family History Other Adopted Social History Social History Smoking status: Never smoker Second hand tobacco smoke exposure: No Substance use: never Do You Feel Safe in your Home?: Yes Lack of Transportation: No Lack of Food: Never True Current Housing: I Have Housing Concerned About Future Housing: No Difficulty Paying Gas/Electric Bills: No Difficulty Paying for Meds: No Currently Unemployed: No Education: Bachelor's Degree Difficulty w/ Childcare or Family Care: No Spiritual care concerns: No Exam Day of Procedure 06/02/24 10:39 Patient weight: overweight Heart: regular rate and rhythm Lungs: clear to auscultation Airway: Mallampati scale Neurological: alert and oriented
--- NOTE | 2024-06-02 12:34 | PM.OBPNLAB ---
Pain Control Date/time seen: 06/02/24 12:34 Comfortable with epidural. Pelvic Exam Dilation (cm): 4 Effacement (%): 80 station: -2 Contractions Contraction frequency: 3 Contraction pattern: Regular Status status: Category ll Comments: Mild variables with contractions. Assessment and Plan Pitocin rate (mU/min): 8 Comments: Add amnioinfusion. Continue labor.
[2024-06-02] MEDS: SODIUM CHLORIDE 0.9% IV 300 ML 600 ML I-UTERINE (12:39)
--- NOTE | 2024-06-02 15:28 | P.PCNOB_ITS ---
OB - Vaginal Delivery Note Procedure Delivery date: 06/02/24 Events: Elective Induction of Labor Induction method: Per Pitocin Protocol Delivery augmentation: Rupture of Membranes Delivery monitor: External FHT, External Uterine and Internal Uterine Route of delivery: Laceration Description: None Quantitative Blood Loss (ml): 80 Anesthesia type: Epidural Disposition: PACU Complications: None Narrative: 29 y/o at 40 1/7 weeks gestation who presented to the hospital for induction of labor. Oxytocin was administered intravenously. Amniotomy was performed with return of scant clear fluid. She received an epidural for pain control. Her labor progressed and her cervix dilated completely. She pushed with good effort and delivered the infant's head to the perineum, followed by the body. The nose and mouth were bulb suctioned, and a loose nuchal cord x 2 was reduced. After a delay, the cord was clamped and cut. The infant was handed off the field. Cord blood was collected. The placenta delivered spontaneously and was grossly normal in appearance. The usual 3 vessel cord was noted. There were no lacerations. Needle and instrument counts were correct. The patient was taken to recovery room in stable condition. The went to the nursery in stable condition. I was present and scrubbed for the entire delivery. [place] Baby Date of : 06/02/24 Time of : 15:15 Gestational Age by Date: 40 Infant gender: Female presentation: vertex position: Left Occiput Anterior Placenta delivery description: Spontaneous and Normal Configuration Cord Vessel Description: 3 Vessels, Nuchal Cord (x2) and Delayed Cord Clamping
--- NOTE | 2024-06-02 15:31 | P.DS_ITS ---
DS: Admitting Diagnosis Discharge Date 06/04/24 Admitting Diagnosis IUP at 40 1/7 weeks DS: Discharge Diagnosis Discharge Diagnosis (1) (normal spontaneous vaginal delivery): Code(s): O80 - Encounter for full-term uncomplicated delivery Status: Acute OB - DS: Summary OB Procedures : None OB Procedures Intrapartum: Spontaneous Vag Delivery OB Procedures: : None Peripartum Data Laceration Description: None Time Spent with Patient Time attestation: Total time spent providing and/or coordinating discharge services: DS: Data Data Completed and Pending Labs on day of discharge: Labs from last 24 hours 06/02/24 06:52 WBC 7.9 RBC 4.24 Hgb 12.6 Hct 37.8 MCV 89.2 MCH 29.7 MCHC 33.3 RDW 13.6 Plt Count 207 MPV 10.9 H Immature Gran % (Auto) 0.4 Neut % (Auto) 66.5 Lymph % (Auto) 27.7 [place] % (Auto) 4.2 Eos % (Auto) 0.9 Baso % (Auto) 0.3 Lymph # (Auto) 2.18 [place] # (Auto) 0.3 Eos # (Auto) 0.1 Baso # (Auto) 0.0 Abs Immat Gran (auto) 0.03 Absolute Neuts (auto) 5.2 Absolute Nucleated RBC 0.000 Nucleated RBC % 0.0 Syphilis IgG/IgM Ab Negative HIV 1&2 Ab/P24 Ag 4thGn Negative Blood Type O Positive Antibody Screen Negative Discharge Plan Discharge Attending physician on discharge: Emmanuel Myles Discharging Clinician: Emmanuel Myles Patient Disposition: Home, Self-Care Activity: pelvic rest Diet: regular Discharge Instructions: Education: Mom and Baby Guide Given to: Mother Follow-Up: Call your delivering provider's office for an appointment to be seen in: call and make an appointment Mom and baby should come to the [facility] for the follow-up appointment. Appointment Date/Time: June 05, 2024 at 12:30 pm What to expect at your follow-up visit: Blood Pressure Check Physical Assessment Call [phone] if you are unable to keep your appointment time. BREAST CARE: * Wear a snug supportive bra. * For engorgement discomfort: Breast Feeding: * Apply warm moist washcloths * Express milk as needed to relieve engorgement * Wear loose clothing Bottle Feeding: * May apply ice packs * For sore nipples: * Identify correct latch-on * Apply warm moist washcloths before and after nursing * Air dry nipples after nursing * May apply Lansinoh cream to nipples EPISIOTOMY/PERINEAL CARE: * Until bleeding stops, use your carlos bottle after urinating * Change your pad frequently throughout the day * You may take sitz baths several times a day (fill your bathtub with warm water and soak for 20 minutes.) Do NOT bathe in the water * No tub baths until seen by your physician - You may shower ACTIVITY: * Rest as much as possible. * Do not exercise or lift anything heavier than your baby (such as laundry or other children.) * Avoid stairs or driving as much as possible. * Do not put anything into the vagina. No douching, tampons, or sexual activity until seen by physician. NOTIFY PHYSICIAN IF YOU HAVE ANY QUESTIONS OR IF ANY OF THE FOLLOWING SYMPTOMS OCCUR: * If your episiotomy or incision becomes red, swollen, or more painful than what you have experienced in the hospital. * If your vaginal bleeding becomes foul smelling. * If your vaginal bleeding becomes more heavy than a period or if your bleeding changes from pink to bright red. However, you may pass an occasional walnut- sized clot once or twice for the first week . * If you experience a sharp, shooting pain in you calves. * If you discover a hard, reddened area on your breast or if you experience flu- like symptoms. DIET: * Eat regular, well-balanced meals. * Drink plenty of fluids daily. If , drink to thirst. Call or return if temperature above 100.4? F, increased abdominal pain, increased vaginal bleeding or any new problems. Patient Language: Korean Stand Alone Forms: General Discharge Information Follow-up/Referrals: Emmanuel Myles MD [Physician] - 6 Weeks Discharge Medications: New ibuprofen 600 mg tablet 600 mg PO Q6H PRN (Reason: cramps) Qty: 30 0RF Classic 28 mg iron- 800 mcg tablet 1 tablet PO DAILY Qty: 90 3RF Date of admission: 06/02/24 06:43 Primary Care Provider: PHYSICIAN,COLLECTION SYSTEMS ADMINISTRATOR Admitting Provider: Emmanuel Myles Attending physician on admission: Emmanuel Myles Condition: Stable
[2024-06-02] MEDS: OXYTOCIN 30 UNITS/NS 500 ML 30 UNITS/500 ML BAG 125 UNITS IV CONT (15:48)
[2024-06-02] MEDS: IBUPROFEN 600 MG TABLET PO ×2 (18:31→23:55)
[2024-06-02] MEDS: ACETAMINOPHEN 325 MG TABLET 650 MG PO ×2 (18:31→23:55)
[2024-06-03 05:55] LABS: Hematocrit 39.5 % (37.0-47.0); Hemoglobin 12.3 g/dL (12.0-15.0)
[2024-06-03 07:45] VITALS: BP 143/80; PULSE 56; RESP 16; TEMP 36.4; O2SAT 99
[2024-06-03] MEDS: DOCUSATE SODIUM 100 MG CAPSULE PO (07:46)
[2024-06-03] MEDS: MULTIVIT/MIN/PREN/FOL AC/IRON TABLET 1 TAB PO (07:46)
[2024-06-03] MEDS: IBUPROFEN 600 MG TABLET PO ×2 (07:46→18:58)
[2024-06-03 12:37] VITALS: BP 136/84; PULSE 63; RESP 16; TEMP 36.5; O2SAT 99
--- NOTE | 2024-06-03 12:59 | P.PNOB_ITS ---
OB - PN: Subj Subjective Date/time seen: 06/03/24 12:59 Narrative: Pain OK. OB - PN: Obj Data Labs 06/03/24 04:42 Labs: Laboratory Results - last 24 hr 06/03/24 04:42 Hgb 12.3 Hct 39.5 OB - PN A/P Plan day: 1 Comments: A: PPD#1, doing well. P: Routine care. Exam 2 Psych: Other: AVSS ABD soft, nontender, fundus firm EXT nontender
[2024-06-03] MEDS: TETANUS,DIPHTHERIA,AC PERTUSSIS ADULT (0.5 ML) BOOSTRIX IM (14:50)
--- NOTE | 2024-06-03 17:38 | PC.NURSE ---
1710. Introductions were made, then consulted with patient to assess needs related to . Discussed with mother her plans to feed her and the experience so far. Mom reports so far she has been able to latch and feed infant with no pain. She reports she breastfed her two older children for about 7 months each. Encouraged mother to express any questions or concerns she has regarding feedings. Advised her to call out for a latch check or if she needs assistance waking or positioning baby. Reviewed the blue feeding worksheet for required output and feeding at least 8-12 times every 24 hours. Resources provided for inpatient and outpatient services with the feeding sheet, mom/baby guide, and name/number written on the communication board. Mother voiced understanding of information and will call if there is a request for assistance. Reported to the Primary RN?
[2024-06-03] MEDS: ACETAMINOPHEN 325 MG TABLET 650 MG PO (18:57)
[2024-06-03 21:07] VITALS: BP 155/92; PULSE 103; RESP 16; TEMP 37; O2SAT 100
[2024-06-04] MEDS: ACETAMINOPHEN 325 MG TABLET 650 MG PO ×2 (00:52→07:08)
[2024-06-04] MEDS: IBUPROFEN 600 MG TABLET PO ×2 (00:52→07:06)
[2024-06-04 01:01] VITALS: BP 120/69; PULSE 93; RESP 16; TEMP 36.8; O2SAT 100
[2024-06-04] MEDS: MULTIVIT/MIN/PREN/FOL AC/IRON TABLET 1 TAB PO (07:06)
[2024-06-04 07:55] VITALS: BP 156/103; PULSE 60; RESP 18; TEMP 36.5; O2SAT 100
--- NOTE | 2024-06-04 08:15 | PC.NURSE ---
Consulted with mother concerning needs and she shared her ability to independently latch infant optimally without pain. Mother is feeding appropriately for growth of infant and understands stimulating to eat if needed. Infant has had appropriate feedings in the last 24 hours meets the outcomes for weight, output, blood sugar and jaundice at this time. Reinforced understanding of signs of adequate intake, transition of stool, prevention/relief of engorgement, plugged ducts, mastitis, community resources, and when to call a provider using the resource of the feeding sheet along with the mom and baby guide. She received a [employer] insurance pump and a [facility] referral was faxed to the [place] office. Mother voiced understanding of the information shared, is confident to continue effectively her infant at home, when to call for assistance, denies any additional assistance or education at this time. Reported to the Primary RN.
--- NOTE | 2024-06-04 08:51 | P.PNOB_ITS ---
OB - PN: Subj Subjective Date/time seen: 06/04/24 08:51 Narrative: Pain OK. Would like to go home. OB - PN: Obj Data Labs 06/03/24 04:42 OB - PN A/P Plan Comments: A: PPD#2, doing well. P: Home to f/u 6 weeks. Exam 2 Psych: Other: AVSS ABD soft, nontender, fundus firm EXT nontender
[2024-06-05 12:52] VITALS: BP 137/83; PULSE 78; RESP 18; TEMP 36.8; O2SAT 100
== END 2024-06-04 10:03 | disposition home or self-care (01) | DRG 560 ==
LOC: ANHLDR 15:35 → ANHOB2 18:21
PROVIDERS: Admitting Provider Obstetrics & Gynecology; Visit Provider Obstetrics & Gynecology
DX: O69.81X0 Labor and delivery complicated by cord around neck, without compression, not applicable or unspecified (principal); Z3A.40 40 weeks gestation of pregnancy; Z37.0 Single live birth
CPT/HCPCS: 36415; 85014; 85018; 85025; 86593; 86703; 86850; 86900; 86901; 90715; A9270; G0432; J2590; J2795; J7030; J7120

== ENCOUNTER 2024-08-09 16:40 | Emergency (ER) | payer OTHER, SELFPAY ==
--- OUTSIDE RECORDS SUMMARY | 2024-08-09 16:43 | XMS_ITS | Referral Summary ---
Author Organization [facility] Address [address] [place] [address] Care Team Providers Care Intellectual Property Lawyer Name Role Phone No, Physician Primary Care Provider [phone] Allergies Active Allergy Reactions Criticality Noted Date [...] 12:01 PM CDT Height 165.1 cm (5' 5) 11/27/2023 12:01 PM CDT Body Mass Index 31.62 11/27/2023 12:01 PM CDT Plan of Treatment Not on file Insurance [facility] Care Teams Intellectual Property Lawyer Relationship Specialty Start Date End Date No, Physician PCP - General 11/25/23
--- OUTSIDE RECORDS SUMMARY | 2024-08-09 16:43 | XMS_ITS | Clinical Summary ---
Author Organization [facility] Address [address] [place] [address] Care Team Providers Care Manager Stars Name Role Phone No, Physician Primary Care Provider [phone] Allergies Active Allergy Reactions Criticality Noted Date [...] Regular Well Visit/Exam 18-64 2014 Influenza Vaccine (Season Ended) 2024 04/09/2021, 03/11/2019 DTaP/Tdap/Td Vaccine (2 - Td or Tdap) 04/09/2031 04/09/2021 HPV Vaccines Aged Out No longer eligi ble based on patient's age to complete this topic Pneumococcal vaccine <65 Aged Out No longer eligible based on patient's age to complete this topic Insurance [facility] Care Teams Manager Stars Relationship Specialty Start Date End Date No, Physician PCP - General 11/25/23
[2024-08-09 16:46] VITALS: BP 119/78; PULSE 56; RESP 18; TEMP 36.4; O2SAT 100
--- NOTE | 2024-08-09 17:02 | ED.GENADULT ---
HPI - General Adult General Chief complaint: Skin/Abscess/Foreign Body Stated complaint: LT Hand Point Finger Infection History of Present Illness HPI narrative: Noni Soto is a 29 year female presents today with complaints of having infection to her left second nail bed. she states that she has been trying to take care of at home by soaking it but feels like it is getting worse over the past few days. Related Data Home Medications ?Medication ?Instructions ?Recorded ?Confirmed ?Last Taken ?Type norethindrone (contraceptive) 0.35 mg 08/09/24 Unknown History mg tablet Allergies Allergy/AdvReac Type Severity Reaction Status Date / Time Sulfa (Sulfonamide Allergy Severe Swelling Verified 08/09/24 16:46 Antibiotics) of Lip/Tongue/Throat Review of Systems Review of Systems: All systems reviewed & are unremarkable except as noted in HPI and below PMFSH Family History Family History Other Adopted Social History Social History Smoking status: Never smoker Second hand tobacco smoke exposure: No Substance use: never Do You Feel Safe in your Home?: Yes Lack of Transportation: No Lack of Food: Never True Current Housing: I Have Housing Concerned About Future Housing: No Difficulty Paying Gas/Electric Bills: No Difficulty Paying for Meds: No Currently Unemployed: No Education: Bachelor's Degree Difficulty w/ Childcare or Family Care: No Spiritual care concerns: No Exam Narrative: GENERAL: Well-appearing, well-nourished, and in no acute distress. HEAD: Normocephalic, atraumatic. EYES: PERRLA and EOMI. ENT: Nares clear, no rhinorrhea or epistaxis. Mucous membranes moist. Oropharynx without tonsillar hypertrophy exudate or other lesions. Bilateral TMs pearly root non bulging NECK: Supple. No adenopathy or masses. No carotid bruits or JVD CHEST: Clear to auscultation. No respiratory distress. No wheezes rales or rhonchi HEART: Regular rate and rhythm. No murmur heard. Normal peripheral pulses. ABDOMEN: Soft, nontender, nondistended, normal active bowel sounds. EXTREMITIES: Normal range of motion. No edema.+ erythema around the left second nail bed with small area of fluctuance noted, consistent with paronychia SKIN: Warm, dry, no rash. NEURO: No focal deficits. Alert and oriented x3. PSYCH: Normal mood and affect. Course Course Level of Care: Express Care Visit Vital Signs Vital signs: Vital Signs Temperature 36.4 C 08/09/24 16:46 Pulse Rate 56 L 08/09/24 16:46 Respiratory Rate 18 08/09/24 16:46 Blood Pressure 119/78 08/09/24 16:46 Pulse Oximetry 100 08/09/24 16:46 Oxygen Delivery Room Air 08/09/24 16:46 Temperature 36.4 C 08/09/24 16:46 Pulse Rate 56 L 08/09/24 16:46 Respiratory Rate 18 08/09/24 16:46 Blood Pressure 119/78 08/09/24 16:46 Pulse Oximetry 100 08/09/24 16:46 Oxygen Delivery Room Air 08/09/24 16:46 Procedures Abscess I/D hand: Date of Incision: 08/09/24 Time of Incision: 17:13 Side (if applicable): left Local Anesthetic: none Technique: needle aspiration Amount of fluid expressed (mL): 1 Irrigation: No Packing used?: none I&D Results: Pus and Blood Abcess I&D Additional Comments: tolerated well Medical Decision Making MDM Narrative Medical decision making narrative: 29 y/o with paronychia to left second phalanx small area of pus noted, cleansed area with alcohol wipe and using 18g needle one stab incision made and pus with mixed of blood came out. Covered with bandage and will d/c with Keflex BID Medical Records Medical records reviewed: Yes I reviewed the external patient's medical records. Vital Signs Vital Signs: Vital Signs Temperature 36.4 C 08/09/24 16:46 Pulse Rate 56 L 08/09/24 16:46 Respiratory Rate 18 08/09/24 16:46 Blood Pressure 119/78 08/09/24 16:46 Pulse Oximetry 100 08/09/24 16:46 Oxygen Delivery Room Air 08/09/24 16:46 Temperature 36.4 C 08/09/24 16:46 Pulse Rate 56 L 08/09/24 16:46 Respiratory Rate 18 08/09/24 16:46 Blood Pressure 119/78 08/09/24 16:46 Pulse Oximetry 100 06/02/25 16:46 Oxygen Delivery Room Air 08/09/24 16:46 Vitals reviewed by me Discharge Plan Discharge Clinical Impression: Paronychia Patient Disposition: Home Condition: Stable Instructions: Antibiotic Form, Paronychia (ED) Additional Instructions: Continue to apply warm compresses to allow area to drain Start the Cephalexin twice daily for 1 week Follow up with your PCP in 1 week If you develop any worsening symptoms return or seek emergent care Patient Language: Israeli Prescriptions: New cephalexin 500 mg capsule 500 mg PO Q12H Qty: 10 0RF No Action norethindrone (contraceptive) 0.35 mg tablet Follow-up/Referrals: PHYSICIAN,[facility] [Primary Care Provider] - Time of Disposition: 17:13
== END 2024-08-09 17:15 | disposition home or self-care (01) ==
PROVIDERS: Emergency Provider Nurse Practitioner Family
DX: L03.012 Cellulitis of left finger (principal)
CPT/HCPCS: 10060; 99203; G0463